=== PATIENT | male | born 1995 | race Caucasian/White ===

== ENCOUNTER 2024-07-25 18:23 | Emergency (ER) | payer MEDICAID, OTHER | END 2024-07-25 22:35 | disposition home or self-care (01) | LOC: DL.ED 18:23 | DX: R14.0 Abdominal distension (gaseous) (principal) | CPT/HCPCS: 71045; 73030-RT; 74018; 99283; 99284 ==

== ENCOUNTER 2024-07-26 21:25 | Emergency (ER) | payer MEDICAID, OTHER ==
[2024-07-26 23:11] LABS: BASOPHILS PERCENT AUTO 0.2 % (0.0-1.0); EOSINOPHILS PERCENT AUTO 0.2 % (1.0-3.0); HEMOGLOBIN 16.7 g/dL (14.0-18.0); LYMPHOCYTES PERCENT AUTO 10.3 % (20.5-50.1); MEAN CORPUSCULAR HEMOGLOBIN 29.7 pg (27.0-34.0); MEAN CORPUSCULAR HGB CONC 32.7 g/dL (33.0-35.0); MEAN CORPUSCULAR VOLUME 90.6 fL (80-100); NEUTROPHILS PERCENT AUTO 78.3 % (42.2-75.2); PLATELET COUNT,PLT 225 10^3/uL (150-450); RED BLOOD CELL COUNT 5.63 10^6/uL (4.6-6.2); WHITE BLOOD CELL COUNT,WBC 13.3 10^3/uL (5.0-10.0)
[2024-07-26 23:30] LABS: A/G RATIO 1.2; ALANINE AMINOTRANSFERASE,ALT 38 U/L (16-63); ALBUMIN 4.5 g/dL (3.4-5.0); ALKALINE PHOSPHATASE 57 U/L (46-116); ANION GAP 10.8 mEq/L (7-13); ASPARTATE AMNIOTRANSFERASE,AST 64 U/L (15-37); BILIRUBIN TOTAL 0.7 mg/dL (0.2-1.0); BLOOD UREA NITROGEN,BUN 14 mg/dL (7-18); C-REACTIVE PROTEIN 0.51 ng/dL (<=0.50); CALCIUM 10.1 mg/dL (8.5-10.1); CARBON DIOXIDE,CO2 31 mmol/L (21-32); CHLORIDE,CL 98 mmol/L (98-107); CREATININE 0.25 mg/dL (0.70-1.30); GLUCOSE RANDOM 86 mg/dL (70-99); MAGNESIUM 2.1 mg/dL (1.8-2.4); POTASSIUM,K 3.8 mmol/L (3.5-5.1); PROTEIN TOTAL,TP 8.1 g/dL (6.4-8.2); SODIUM,NA 136 mmol/L (136-145)
[2024-07-26 23:32] LABS: APPEARANCE,URINE TURBID (CLEAR); BILIRUBIN,URINE SMALL (NEGATIVE); COLOR,URINE YELLOW (YELLOW); GLUCOSE,URINE NEGATIVE (NEGATIVE); KETONES,URINE >=160 (NEGATIVE); LEUKOCYTE ESTERASE,URINE NEGATIVE (NEGATIVE); NITRITE,URINE NEGATIVE (NEGATIVE); OCCULT BLOOD,URINE LARGE (NEGATIVE); PROTEIN,URINE 30 (NEGATIVE); UROBILINOGEN,URINE 0.2 mg/dL (0.2-1.0)
[2024-07-26 23:35] LABS: LACTIC ACID 0.7 mmol/L (0.4-2.0)
[2024-07-26 23:38] LABS: ESTIMATED GFR 177 mL/min (>=60)
[2024-07-26 23:44] LABS: AMORPHOUS SEDIMENT,URINE MANY /HPF (NOT SEEN); BACTERIA,URINE FEW /HPF (0-FEW/HPF); EPITHELIAL CELLS,URINE RARE /HPF (NOT SEEN); MUCUS,URINE FEW /LPF (NOT SEEN); WBC,URINE 0-5 /HPF (0-5/HPF)
[2024-07-26 23:47] LABS: RBC,URINE 30-40 /HPF (0-5)
[2024-07-27] MEDS: cefTRIAXone 1 GM Vial IM ONE (02:04)
== END 2024-07-27 02:18 | disposition home or self-care (01) ==
LOC: DL.ED 21:25
DX: G71.00 Muscular dystrophy, unspecified (principal)
CPT/HCPCS: 36415; 71045; 80053; 81001; 83605; 83735; 85025; 86140; 96372; 99285; J0696